=== PATIENT | female | born 1990 | race African-American/Black ===

== ENCOUNTER 2017-04-22 00:42 | Emergency (ER) | payer MEDICAID ==
[~2017-04-22] VITALS: Ht 162.6 cm; Wt 107.3 kg
[~2017-04-22 00:42] MED LIST: BISA10R RECTAL; CLIN150 PO; COMMODE 3:1; DOCU1CAP39 PO; GABA100C4 PO; PERC5TAB12 PO; RANI150 PO; TUB TRANSFER BENCH; WHEELCHAIR RENTAL RA; Z.0.WALKERBAR; [UNRECOGNIZED DRUG - OTHER]
[2017-04-22 00:43] VITALS: BP 125/75; PULSE 85; RESP 18; TEMP 97.8; O2SAT 100
[2017-04-22 01:05] VITALS: BP 125/75; PULSE 85; RESP 18; TEMP 97.8; O2SAT 100
--- NOTE | 2017-04-22 01:25 | PD ---
HPI Chief Complaint: Oral / Dental Pain or Problem Time Seen by Provider: 00:48 Travel History International Travel<30 days: No Contact w/Intl Traveler<30days: No Traveled to known affect area: No History of Present Illness HPI Patient is reporting right upper gum and dental pain for the last 24 hours. She said is progressed now to where it hurts to swallow and she feels pain in her lymph nodes of her neck and her face on the right side patient reports having had this happen before and it did not need an extraction but with antibiotics he went down eventually she reports patient is allergic to penicillin and amoxicillin. She has not seen a doctor for this or dentist for this and she is took Motrin 6 hours ago with moderate relief PFSH Past Medical History Arthritis: No Asthma: Yes Autoimmune Disease: No Anxiety: No Depression: No Heart Rhythm Problems: No Cancer: No Cardiovascular Problems: No High Cholesterol: No Chemotherapy: No Chest Pain: No Congestive Heart Failure: No COPD: No Cerebrovascular Accident: No Diabetes: No Diminished Hearing: No Endocrine: No GERD: Yes Genitourinary: No Hiatal Hernia: No Immune Disorder: No Kidney Stones: Yes Musculoskeletal: No Neurologic: No Psychiatric: No Reproductive: No Respiratory: Yes Immunizations Current: No Migraines: No Radiation Therapy: No Renal Failure: No Seizures: No Sickle Cell Disease: No Sleep Apnea: No Thyroid Disease: No Ulcer: No ?: Not LMP: now Menopausal: No : 6 Para: 2 Miscarriage: 3 : 0 Ovarian Cysts: Yes (LEFT) Past Surgical History Abdominal Surgery: Yes (cholecystectomy) AICD: No Arteriovenous Shunt: No Cardiac Surgery: No Section: Yes ( X 2 ) Cholecystectomy: Yes Ear Surgery: Yes (CYST REMOVAL 1991) Endocrine Surgery: No Eye Surgery: No Genitourinary Surgery: Yes ( URETHRAL STENT REMOVED AFTER HAD LAST BABY) Gynecologic Surgery: Yes () Insulin Pump: No Joint Replacement: No Oral Surgery: No Pacemaker: No Thoracic Surgery: No Other Surgery: Yes (GALL BLADDER REMOVED) Social History Alcohol Use: Yes (in the past/not in ) Tobacco Use: No Substance Use: No Allergies-Medications (Allergen,Severity, Reaction): Coded Allergies: amoxicillin (Verified Allergy, Severe, Anaphylaxis, 04/22/17) ampicillin (Verified Allergy, Severe, 04/22/17) penicillin G (Verified Allergy, Severe, 04/22/17) Reported Meds & Prescriptions Reported Meds & Active Scripts Active Clindamycin (Clindamycin HCl) 150 Mg Cap 150 Mg PO Q6H Tramadol (Tramadol HCl) 50 Mg Tab 50 Mg PO Q6H PRN Clindamycin (Clindamycin HCl) 150 Mg Cap 150 Mg PO Q6H Ibuprofen 800 Mg Tab 800 Mg PO Q6HR PRN Review of Systems Except as stated in HPI: all other systems reviewed are Neg HENT: Positive: Dental Difficulties Physical Exam Narrative GENERAL: non toxic afebrile SKIN: Warm and dry. HEAD: Atraumatic. Normocephalic. EYES: Pupils equal and round. No scleral icterus. No injection or drainage. EOMI right and left eye ENT: No nasal bleeding or discharge. Mucous membranes pink and moist. right inner upper gum slightly swollen and tender to touch , no apical abscess, no pus seen no odor of purulence NECK: Trachea midline. No JVD. righ tsided lymphadenopathy CARDIOVASCULAR: Regular rate and rhythm. RESPIRATORY: No accessory muscle use. Clear to auscultation. Breath sounds equal bilaterally. GASTROINTESTINAL: Abdomen soft, non-tender, nondistended. Hepatic and splenic margins not palpable. MUSCULOSKELETAL: Extremities without clubbing, cyanosis, or edema. No obvious deformities. NEUROLOGICAL: Awake and alert. No obvious cranial nerve deficits. Motor grossly within normal limits. Five out of 5 muscle strength in the arms and legs. Normal speech. PSYCHIATRIC: Appropriate mood and affect; insight and judgment normal. Data Data Last Documented VS Vital Signs Date Time Temp Pulse Resp B/P (MAP) Pulse Ox O2 Delivery O2 Flow Rate FiO2 04/22/17 01:45 79 18 127/73 (91) 100 04/22/17 01:05 97.8 Orders Orders Group A Rapid Strep Screen (04/22/17 00:50) Strep Culture (Group A) (04/22/17 00:56) Ibuprofen (Motrin) (04/22/17 01:30) Tramadol (Ultram) (04/22/17 01:30) Clindamycin (Cleocin) (04/22/17 01:30) Ed Discharge Order (04/22/17 01:28) MDM Medical Decision Making Medical Screen Exam Complete: Yes Emergency Medical Condition: Yes Differential Diagnosis And apical abscess versus infected tooth versus idiopathic gum inflammation versus strep throat Narrative Course Strep swab is negative gone is mildly inflamed on the right no active infection will treat with 7 days of clindamycin ibuprofen Diagnosis Primary Impression: Tooth decay Patient Instructions: General Instructions, Toothache (ED) Scripts Clindamycin (Clindamycin) 150 Mg Cap 150 MG PO Q6H for Infection, #28 CAP 0 Refills Prov: Paresh Brannon MD 04/22/17 Tramadol (Tramadol) 50 Mg Tab 50 MG PO Q6H Y for PAIN, #6 TAB 0 Refills Prov: Paresh Brannon MD 04/22/17 Clindamycin (Clindamycin) 150 Mg Cap 150 MG PO Q6H for Infection, #28 CAP 0 Refills Prov: Paresh Brannon MD 04/22/17 Ibuprofen (Ibuprofen) 800 Mg Tab 800 MG PO Q6HR Y for PAIN, #20 TAB 0 Refills Prov: Paresh Brannon MD 04/22/17 Disposition: 01 DISCHARGE HOME Condition: Good Paresh Brannon MD Apr 22, 2017 01:24
[2017-04-22] MEDS ORDERED: CLIN150C14 PO ×2 (01:27→01:38)
[2017-04-22] MEDS ORDERED: TRAM50TA PO ×2 (01:27→01:38)
[2017-04-22] MEDS ORDERED: IBUP1TAB7 PO ×2 (01:27→01:38)
[2017-04-22] MEDS ORDERED: IBUPROFEN 600 MG TAB PO ONE (01:30)
[2017-04-22] MEDS ORDERED: CLINDAMYCIN 150 MG CAP PO ONE (01:30)
[2017-04-22] MEDS ORDERED: traMADol HCL 50 MG TAB PO ONE (01:30)
[2017-04-22 01:45] VITALS: BP 127/73
== END 2017-04-22 01:51 | disposition home or self-care (01) ==
LOC: PHED 00:42
DX: K02.9 Dental caries, unspecified (principal); J45.909 Unspecified asthma, uncomplicated
CPT/HCPCS: 87081; 87880; 99284